=== PATIENT | female | born 1950 | race Caucasian/White ===

== ENCOUNTER 2019-02-26 08:07 | Day surgery (SDC) | payer OTHER ==
[~2019-02-26] VITALS: Ht 165.1 cm; Wt 51.8 kg
[~2019-02-26 08:07] MED LIST: AMLO5 PO; ASPI81CH PO; ATOR10 PO; GABA300 PO; LISI20 PO; Prednisone20 MG PO; Ultram50 MG PO; Zofran Odt4 MG SL
--- NOTE | 2019-02-26 09:14 | NUR ---
02/26/19 0914 Ranjeet iqbal FIRST IV IN LEFT HAND DIDNT WORK BY MIRZA SECOND IV IN RIGHT HAND DID WORK BY MIRZA
--- NOTE | 2019-02-26 10:31 | NUR ---
02/26/19 1031 Claire Li SIMETHICONE USED DURING PROCEDURE.
== END 2019-02-26 11:40 | disposition home or self-care (01) ==
LOC: ORSCSDS 08:07
PROVIDERS: Student in an Organized Health Care Education/Training Program
PROC: 0DBP8ZX Excision of Rectum, Via Natural or Artificial Opening Endoscopic, Diagnostic (ICD-10-PCS; principal; 2019-02-26 09:30)
PROC: 0DBM8ZX Excision of Descending Colon, Via Natural or Artificial Opening Endoscopic, Diagnostic (ICD-10-PCS; principal; 2019-02-26 09:30)
PROC: 0DBE8ZX Excision of Large Intestine, Via Natural or Artificial Opening Endoscopic, Diagnostic (ICD-10-PCS; principal; 2019-02-26 09:30)
PROC: 0DBF8ZX Excision of Right Large Intestine, Via Natural or Artificial Opening Endoscopic, Diagnostic (ICD-10-PCS; principal; 2019-02-26 09:30)
PROC: 0DBN8ZX Excision of Sigmoid Colon, Via Natural or Artificial Opening Endoscopic, Diagnostic (ICD-10-PCS; principal; 2019-02-26 09:30)
DX: K50.90 Crohn's disease, unspecified, without complications (principal); D12.2 Benign neoplasm of ascending colon; D12.4 Benign neoplasm of descending colon; D12.5 Benign neoplasm of sigmoid colon; K63.5 Polyp of colon; D12.8 Benign neoplasm of rectum; K62.1 Rectal polyp; K64.8 Other hemorrhoids; I10 Essential (primary) hypertension; E78.5 Hyperlipidemia, unspecified; F17.210 Nicotine dependence, cigarettes, uncomplicated; J43.9 Emphysema, unspecified; Z79.899 Other long term (current) drug therapy; Z79.82 Long term (current) use of aspirin
CPT/HCPCS: 88305; J2250; J2704; J7120

== ENCOUNTER 2021-07-27 07:02 | Inpatient (IN) | payer OTHER ==
[~2021-07-27] VITALS: Ht 165.1 cm; Wt 56.7 kg
[2021-07-27 07:47] LABS: BASOPHILS ABSOLUTE AUTO 0.02 K/mm3 (0.00-0.23); BASOPHILS PERCENT AUTO 0 % (0-2); EOSINOPHILS ABSOLUTE AUTO 0.03 K/mm3 (0.00-0.68); EOSINOPHILS PERCENT AUTO 0 % (0-6); Hematocrit 37.4 % (33.0-51.0); Hemoglobin 12.7 g/dL (11.5-16.0); IMMATURE GRAN ABSOLUTE AUTO 0.05 K/mm3 (0.00-0.10); IMMATURE GRAN PERCENT AUTO 1 % (0-1); LYMPHOCYTES ABSOLUTE AUTO 0.87 K/mm3 (0.84-5.20); LYMPHOCYTES PERCENT AUTO 8 % (21-46); MONOCYTES ABSOLUTE AUTO 0.83 K/mm3 (0.16-1.47); MONOCYTES PERCENT AUTO 8 % (4-13); Mean Corpuscular HGB 30.3 pg (26.0-34.0); Mean Corpuscular Volume 89 fL (80-100); Mean Platelet Volume 10.6 fL (9.1-12.4); NEUTROPHILS ABSOLUTE AUTO 9.26 K/mm3 (1.96-9.15); NEUTROPHILS PERCENT AUTO 84 % (41-73); Platelet Count 255 K/mm3 (150-400); RDW Coefficient Variation 13.9 % (11.7-14.2); RDW Standard Deviation 45.3 fL (35.1-46.3); Red Blood Cell Count 4.19 M/mm3 (3.80-5.20); White Blood Cell Count 11.06 K/mm3 (4.00-11.30)
[2021-07-27 08:08] LABS: Alanine Aminotransfer (ALT/SGP 34 U/L (12-78); Albumin, Blood 3.7 g/dL (3.4-5.0); Albumin/Globulin Ratio 1.2 (0.8-1.8); Alk Phos 61 U/L (50-136); Anion Gap 8 mmol/L (6-16); Aspartate Aminotrans (AST/SGOT 17 U/L (12-37); Bilirubin, Total 0.6 mg/dL (0.1-1.0); Blood Urea Nitrogen 10 mg/dL (8-24); Bun/Creatinine Ratio 17.1 (12.0-20.0); CO2, Blood 25 mmol/L (21-32); Calcium, Blood 8.9 mg/dL (8.5-10.1); Chloride, Blood 99 mmol/L (98-108); Creatinine, Blood 0.58 mg/dL (0.40-1.00); Globulin, Blood 3.2 g/dL (2.2-4.0); Glomerular Filtration Rate >60 (60-); Glucose, Blood 160 mg/dL (70-99); Potassium, Blood 4.4 mmol/L (3.5-5.5); Sodium, Blood 132 mmol/L (136-145); Total Protein, Blood 6.9 g/dL (6.4-8.2); Troponin I <0.015 ng/mL (0.000-0.040)
[2021-07-27] MEDS ORDERED: MULVITA PO (08:26)
[2021-07-27] MEDS ORDERED: ALEN10 PO (08:26)
[2021-07-27] MEDS ORDERED: CALCIUM CIT 311 EAC7 PO (08:26)
[2021-07-27] MEDS ORDERED: CENTRUM SILVER1 EAC2 PO (08:26)
[2021-07-27 09:37] LABS: Influenza A, PCR NEGATIVE (NEGATIVE); Influenza B, PCR NEGATIVE (NEGATIVE); Resp Syncytial Virus, PCR NEGATIVE (NEGATIVE); SARS-Cov-2 (COVID-19) PCR, MMC NEGATIVE (NEGATIVE)
--- NOTE | 2021-07-27 14:25 | NUR ---
Pt admitted from ED @1200. VSS on RA. Pain reported in left hip 03/27, prn morphine given with some relief. Pt says any movement is extremely painful. Pt headed to surgery on left hip at 1430.
--- NOTE | 2021-07-27 14:51 | NUR ---
PT TO SDS. AGREES WITH PLANNED SURGERY. LUNG SOUNDS CLEAR.
--- NOTE | 2021-07-27 17:44 | NUR ---
Pt returned from surgery at 1740. VSS on 2-3L, titrated to 2L and sating 92-94%. Resting comfortably in bed. Temp was 99.1, will continue to monitor.
--- NOTE | 2021-07-27 17:47 | NUR ---
Dressing appears to have no bleeding. Will continue to monitor.
--- NOTE | 2021-07-27 18:10 | NUR ---
Pt is alert and drinking coffee. VSS on 1L. Dressing is clean/dry and intact.
[2021-07-28 04:53] LABS: BASOPHILS ABSOLUTE AUTO 0.01 K/mm3 (0.00-0.23); BASOPHILS PERCENT AUTO 0 % (0-2); EOSINOPHILS PERCENT AUTO 0 % (0-6); Hematocrit 34.2 % (33.0-51.0); Hemoglobin 11.7 g/dL (11.5-16.0); IMMATURE GRAN ABSOLUTE AUTO 0.05 K/mm3 (0.00-0.10); IMMATURE GRAN PERCENT AUTO 1 % (0-1); LYMPHOCYTES ABSOLUTE AUTO 0.66 K/mm3 (0.84-5.20); LYMPHOCYTES PERCENT AUTO 7 % (21-46); MONOCYTES ABSOLUTE AUTO 0.55 K/mm3 (0.16-1.47); MONOCYTES PERCENT AUTO 6 % (4-13); Mean Corpuscular HGB 30.7 pg (26.0-34.0); Mean Corpuscular HGB Conc 34.2 g/dL (31.5-36.5); Mean Corpuscular Volume 90 fL (80-100); Mean Platelet Volume 10.9 fL (9.1-12.4); NEUTROPHILS ABSOLUTE AUTO 7.82 K/mm3 (1.96-9.15); NEUTROPHILS PERCENT AUTO 86 % (41-73); Platelet Count 203 K/mm3 (150-400); RDW Coefficient Variation 13.9 % (11.7-14.2); RDW Standard Deviation 45.5 fL (35.1-46.3); Red Blood Cell Count 3.81 M/mm3 (3.80-5.20); White Blood Cell Count 9.09 K/mm3 (4.00-11.30)
--- NOTE | 2021-07-28 05:12 | NUR ---
DENIED PAIN OR DISCOMFORT THROUGH NIGHT. ABLE TO VERBALIZE NEEDS WITHOUT DIFFICULTY. AQUACEL DRESSING CLEAN DRY AND INTACT TO LEFT HIP. VOIDING WITHOUT DIFFICULTY WITH USE OF BED LOW. SAFETY MAINTAINED, CALL LEE IN REACH.
[2021-07-28 05:43] LABS: Anion Gap 8 mmol/L (6-16); Blood Urea Nitrogen 9 mg/dL (8-24); Bun/Creatinine Ratio 15.5 (12.0-20.0); CO2, Blood 25 mmol/L (21-32); Calcium, Blood 8.5 mg/dL (8.5-10.1); Chloride, Blood 98 mmol/L (98-108); Creatinine, Blood 0.58 mg/dL (0.40-1.00); Glomerular Filtration Rate >60 (60-); Glucose, Blood 123 mg/dL (70-99); Potassium, Blood 4.5 mmol/L (3.5-5.5); Sodium, Blood 131 mmol/L (136-145)
--- NOTE | 2021-07-28 12:22 | NUR ---
07/28/21 1222 Lien Sanchez VERIFICATIONS: EDIT CHART.
--- NOTE | 2021-07-28 14:52 | NUR ---
Pt. was alert and sitting up in chair. Pt. welcomed my visit. Established rapport, and facilitated a life review. Pt. verbalized her departure from [employer] as a child, and has embaced spirituality of her roots. Pt. was unsettled about her stay in hosptial, and was anticipating a discharge within the next day. Though initially guarded to my presence, through empathetic listening, pt. verbalized her confidence in the care she has received, and how her family will care for her while at home.
--- NOTE | 2021-07-28 19:02 | NUR ---
SHIFT SUMMARY PT HAS DONE VERY WELL TODAY. WORKED WELL w/ THERAPIES. UP TO CHAIR & BATHROOM EASILY. EXCITED FOR POTENTIAL DC HOME TOMORROW AFTER WORKING w/ THERAPY & TOGETHER. TYLENOL MANAGING PAIN. EATING,DRINKING,VOIDING & PASSING .
[2021-07-29 04:34] LABS: BASOPHILS ABSOLUTE AUTO 0.03 K/mm3 (0.00-0.23); BASOPHILS PERCENT AUTO 1 % (0-2); EOSINOPHILS ABSOLUTE AUTO 0.14 K/mm3 (0.00-0.68); EOSINOPHILS PERCENT AUTO 2 % (0-6); Hematocrit 32.3 % (33.0-51.0); IMMATURE GRAN ABSOLUTE AUTO 0.03 K/mm3 (0.00-0.10); IMMATURE GRAN PERCENT AUTO 1 % (0-1); LYMPHOCYTES ABSOLUTE AUTO 1.27 K/mm3 (0.84-5.20); LYMPHOCYTES PERCENT AUTO 21 % (21-46); MONOCYTES ABSOLUTE AUTO 0.55 K/mm3 (0.16-1.47); MONOCYTES PERCENT AUTO 9 % (4-13); Mean Corpuscular HGB 30.9 pg (26.0-34.0); Mean Corpuscular HGB Conc 34.1 g/dL (31.5-36.5); Mean Corpuscular Volume 91 fL (80-100); Mean Platelet Volume 11.1 fL (9.1-12.4); NEUTROPHILS ABSOLUTE AUTO 4.17 K/mm3 (1.96-9.15); NEUTROPHILS PERCENT AUTO 67 % (41-73); Platelet Count 190 K/mm3 (150-400); RDW Coefficient Variation 13.9 % (11.7-14.2); RDW Standard Deviation 46.5 fL (35.1-46.3); Red Blood Cell Count 3.56 M/mm3 (3.80-5.20); White Blood Cell Count 6.19 K/mm3 (4.00-11.30)
[2021-07-29 05:01] LABS: Anion Gap 5 mmol/L (6-16); Blood Urea Nitrogen 10 mg/dL (8-24); Bun/Creatinine Ratio 17.9 (12.0-20.0); CO2, Blood 29 mmol/L (21-32); Calcium, Blood 8.4 mg/dL (8.5-10.1); Chloride, Blood 99 mmol/L (98-108); Creatinine, Blood 0.56 mg/dL (0.40-1.00); Glomerular Filtration Rate >60 (60-); Glucose, Blood 103 mg/dL (70-99); Sodium, Blood 133 mmol/L (136-145)
--- NOTE | 2021-07-29 05:41 | NUR ---
PATIENT STATED SHE OVER WORKED HER LEG THROUGH THE DAY. MEDICATED WITH MORPHINE 2.5MG VIA IV, CONTINUED TO COMPLAIN OF PAIN AND MUSCLE SPASMS. FLEXERIL 10MG ORDERED, EFFECTIVE RELIEF. ABLE TO SLEEP A FEW HOURS. RECEIVED ANOTHER DOSE OF MORPHINE 2.5MG IV, EFFECTIVE RELIEF. AMBULATES WITH STAND BY ASSIST. DRESSING INTACT TO LEFT HIP. SAFETY MAINBTAINED, CALL LEE IN REACH.
[2021-07-29] MEDS ORDERED: Cyclobenzaprine5 MG PO (12:25)
[2021-07-29] MEDS ORDERED: ONDA4 PO (12:26)
[2021-07-29] MEDS ORDERED: HYDMOR2 PO (12:26)
--- NOTE | 2021-07-29 14:11 | NUR ---
DISCHARGE PT HAS CLEARED THERAPY. CLEARED BY ORTHO. PAIN WELL CONTROLLED. EATING, DRINKING, & VOIDING WELL. PASSING GAS. DRSCONRAD, SCRIPT, & POLAR PACK SENT w/ PT. ESCORTED OUT VIA W/C.
== END 2021-07-29 13:14 | disposition home or self-care (01) | DRG 481 ==
LOC: ER 07:02 → SURS 10:27 → ERHOLD 10:27 → SURS 11:57
PROVIDERS: Emergency Medicine; Orthopaedic Surgery; ADMIT Family Medicine
PROC: 0QS734Z Reposition Left Upper Femur with Internal Fixation Device, Percutaneous Approach (ICD-10-PCS; principal; 2021-07-27 15:30)
DX: S72.002A Fracture of unspecified part of neck of left femur, initial encounter for closed fracture (principal); F17.213 Nicotine dependence, cigarettes, with withdrawal; Z20.822 Contact with and (suspected) exposure to COVID-19; I10 Essential (primary) hypertension; E78.5 Hyperlipidemia, unspecified; J43.9 Emphysema, unspecified; M81.0 Age-related osteoporosis without current pathological fracture; Z90.49 Acquired absence of other specified parts of digestive tract; Z90.710 Acquired absence of both cervix and uterus; Z88.0 Allergy status to penicillin; Z88.5 Allergy status to narcotic agent; Z28.21 Immunization not carried out because of patient refusal; Z79.82 Long term (current) use of aspirin; Z79.899 Other long term (current) drug therapy; W06.XXXA Fall from bed, initial encounter
CPT/HCPCS: 0241U; 36415; 73080; 73502; 80048; 80053; 84484; 85025; 93005; 93010; 96374; 96375; 97110; 97116; 97162; 97166; 97535; 99285-25; A9270; C1713; C1769; J0171; J0690; J1100; J1885; J2270; J2370; J2405; J2704; J3010; J7120